=== PATIENT | female | born 1980 | race Caucasian/White ===

== ENCOUNTER 2018-06-01 22:03 | Emergency (ER) | payer MEDICAID ==
[~2018-06-01] VITALS: Ht 157.5 cm; Wt 72.6 kg
--- NOTE | 2018-06-01 22:30 | NUR ---
pt came in for c/o cp radiating to abd, vs obtained, placed on er bed #11, awaiting for er md to arnol.
--- NOTE | 2018-06-01 22:52 | NUR ---
seen and eval done by dr mistry, awaiting orders.
[2018-06-01] MEDS ORDERED: MORPHINE SULFATE INJ 2 MG/ML DISP.SYRIN IV ONE (23:00)
[2018-06-01] MEDS ORDERED: ONDANSETRON HCL/PF 4 MG/2 ML VIAL IVP ONE (23:00)
[2018-06-01] MEDS ORDERED: IV NS 0.9% 1,000 ML BAG IV ONE (23:00)
--- NOTE | 2018-06-01 23:00 | NUR ---
Addendum: Normal saline 1 L; start time 2319 - end time (06/02/2018) 0020; PIV # 20 LAC; port #1
[2018-06-01] MEDS ORDERED: ONDANSETRON HCL/PF 4 MG/2 ML VIAL ONE (23:03)
[2018-06-01] MEDS ORDERED: MORPHINE SULFATE INJ 4 MG/ML DISP.SYRIN ONE (23:04)
[2018-06-01 23:22] LABS: BASOPHILS % (AUTO) 0.4 % (0.0-2.0); EOSINOPHILS % (AUTO) 2.5 % (0.0-6.0); HEMATOCRIT 39 % (33-45); HEMOGLOBIN 13.3 g/dL (11.5-14.8); LYMPHOCYTES # (AUTO) 2.1 /CMM (0.8-4.8); LYMPHOCYTES % (AUTO) 18.2 % (20.0-44.0); MEAN CORPUSCULAR HGB CONC 34 g/dl (31.0-36.0); MEAN CORPUSCULAR VOLUME 97 fL (82-100); MONOCYTES # (AUTO) 0.7 /CMM (0.1-1.30); MONOCYTES % (AUTO) 5.8 % (2.0-12.0); NEUTROPHILS # (AUTO) 8.4 /CMM (1.8-8.9); NEUTROPHILS % (AUTO) 73.1 % (43.0-81.0); PLATELET COUNT (AUTO) 318 /CMM (150-450); RED BLOOD CELL COUNT(AUTO) 4.05 MIL/uL (4.0-5.2); WHITE BLOOD COUNT (AUTO) 11.5 K/uL (4.3-11.0)
--- NOTE | 2018-06-01 23:28 | NUR ---
DR BARTON SEEN AND EVAL DONE AT BED SIDE 11, WITH ORDERS FOR CT ABD AND PELVIC, UA COLLECTED, EKG TO BE DONE, LAC#20G STARTED, 1L BOLUS NS INITIATED, MARYLIN' WELL, WILL CONT' TO MONITOR.
[2018-06-01 23:34] LABS: APPEARANCE,URINE CLEAR (CLEAR); BILIRUBIN,URINE NEGATIVE (NEGATIVE); BLOOD, URINE NEGATIVE Ery/uL (NEGATIVE); COLOR,URINE YELLOW (YELLOW); KETONES,URINE NEGATIVE (NEGATIVE); LEUKOCYTE ESTERASE ,URINE NEGATIVE (NEGATIVE); NITRITE, URINE NEGATIVE (NEGATIVE); PH,URINE 6.5 (5.0-8.0); PROTEIN,URINE NEGATIVE (NEGATIVE); UGLUCOSE NEGATIVE (NEGATIVE); UROBILINOGEN,URINE 0.2 EU/dL (0.2)
[2018-06-01 23:40] LABS: ALBUMIN 3.9 g/dL (3.4-5.0); BILIRUBIN,DIRECT 0.2 mg/dL (0.0-0.2); BILIRUBIN,TOTAL 0.7 mg/dL (0.2-1.0); CALCIUM, SERUM 9.8 mg/dL (8.5-10.1); CREATININE 0.7 mg/dL (0.6-1.3); POTASSIUM 4.2 mmol/L (3.5-5.1); TOTAL PROTEIN, SERUM 7.5 g/dL (6.4-8.2)
[2018-06-02] MEDS ORDERED: MORPHINE SULFATE INJ 2 MG/ML DISP.SYRIN IV ONE (01:30)
[2018-06-02] MEDS ORDERED: MORPHINE SULFATE INJ 4 MG/ML DISP.SYRIN ONE (01:32)
--- NOTE | 2018-06-02 01:59 | NUR ---
Patient discharged to home in stable condition, imaging results relayed to pt ct abdomen, ct abd & pelvic, and xray, rx provided by dr fede coffey md. Written and verbal after care instructions given. Patient verbalizes understanding of instruction.
[2018-06-02 02:02] VITALS: BP 125/72
== END 2018-06-02 02:18 | disposition home or self-care (01) ==
LOC: ER 22:09
DX: K80.70 Calculus of gallbladder and bile duct without cholecystitis without obstruction (principal); R11.10 Vomiting, unspecified; F17.200 Nicotine dependence, unspecified, uncomplicated
CPT/HCPCS: 36415; 71045-TC; 76700-TC; 80048-TC; 80076-TC; 81000-TC; 83690-TC; 84703-TC; 85025-TC; 85730-TC; A4606; J2270; J2405; J7030; Z7610